=== PATIENT | male | born 1940 | race African-American/Black ===

== ENCOUNTER 2021-10-03 10:16 | Emergency (ER) | payer MEDICARE, OTHER | END 2021-10-03 12:25 | disposition home or self-care (01) | LOC: ERS 10:16 | DX: S13.4XXA Sprain of ligaments of cervical spine, initial encounter (principal); S16.1XXA Strain of muscle, fascia and tendon at neck level, initial encounter; S00.03XA Contusion of scalp, initial encounter; I10 Essential (primary) hypertension; E11.9 Type 2 diabetes mellitus without complications; W18.30XA Fall on same level, unspecified, initial encounter | CPT/HCPCS: 70450; 72125 ==

== ENCOUNTER 2021-11-27 14:38 | Outpatient (CLI) | payer MEDICARE | END 2021-11-27 14:39 | disposition home or self-care (01) | LOC: BICULT 14:38 | PROVIDERS: ATTEND Internal Medicine Nephrology | DX: N18.30 Chronic kidney disease, stage 3 unspecified (principal); N28.1 Cyst of kidney, acquired | CPT/HCPCS: 76770 ==

== ENCOUNTER 2023-01-31 17:49 | Observation (INO) | payer MEDICARE ==
[2023-01-31 18:24] LABS: #Eosinphils 0.2 thou/uL (0.0-0.7); #Monocytes 0.5 thou/uL (0.11-0.59); #Neutrophils 2.7 thou/uL (1.40-6.50); %Basophils 0.8 % (0.0-1.0); %Eosinophils 4.1 % (0.0-10.0); %Lymphocytes 32.6 % (21.0-51.0); %Monocytes 9.9 % (0.0-10.0); %Neutrophils 52.4 % (42.0-75.0); Hemoglobin 11.6 g/dL (14.0-18.0); Mean Corpuscular HGB CONC 31.9 g/dL (32.0-36.0); Mean Corpuscular Hemoglobin 26.9 pg (27.0-31.0); Mean Corpuscular Volume 84.5 fl (78.0-98.0); Mean Platelet Volume 9.7 fL (7.4-10.4); Platelet Count 242 10x3/uL (130-400); RBC Distribution Width 15.2 % (11.5-14.5); Red Blood Cell (RBC) Count 4.31 mill/uL (4.70-6.10); White Blood Cell (WBC) Count 5.1 10x3/uL (4.8-10.8)
[2023-01-31 18:46] LABS: Anion Gap 15 mmol/L (10-20); BUN (Urea Nitrogen) 43 mg/dL (8.4-25.7); CK (CPK) 91 U/L (30-200); Calc. Creatinine Clearance 0 mL/min (70-130); Calcium 9.4 mg/dL (7.8-10.44); Carbon Dioxide 22 mmol/L (23-31); Chloride 107 mmol/L (98-107); Estimated GFR 19; Glucose 107 mg/dL (83-110); Potassium 4.8 mmol/L (3.5-5.1); Sodium 139 mmol/L (136-145)
[2023-01-31] MEDS ORDERED: Ondansetron ODT 4 MG TAB PO PRN (19:56)
[2023-01-31] MEDS ORDERED: Ondansetron PF 4 MG/2 ML Vial IVP PRN (19:56)
[2023-01-31] MEDS ORDERED: Acetaminophen 650 MG Suppository PR PRN (19:56)
[2023-01-31] MEDS ORDERED: Acetaminophen 325 MG TAB PO PRN (19:56)
[2023-01-31 21:15] VITALS: BMI 33.7
[2023-01-31] MEDS: Sodium Chloride 0.9% 1,000 ML IV SCH (21:33)
[2023-02-01 02:54] LABS: Bacteria/HPF None Seen HPF (None Seen); RBC/HPF 0-3 HPF (0-3); Squamous Epithelial None Seen HPF (0-3); WBC/HPF 0-3 HPF (0-3)
[2023-02-01 05:50] LABS: #Eosinphils 0.2 thou/uL (0.0-0.7); #Monocytes 0.6 thou/uL (0.11-0.59); #Neutrophils 2.1 thou/uL (1.40-6.50); %Basophils 0.7 % (0.0-1.0); %Eosinophils 4.4 % (0.0-10.0); %Lymphocytes 33.7 % (21.0-51.0); %Monocytes 12.7 % (0.0-10.0); %Neutrophils 48.3 % (42.0-75.0); Hemoglobin 11.4 g/dL (14.0-18.0); Mean Corpuscular HGB CONC 31.7 g/dL (32.0-36.0); Mean Corpuscular Hemoglobin 26.5 pg (27.0-31.0); Mean Corpuscular Volume 83.5 fl (78.0-98.0); Mean Platelet Volume 9.7 fL (7.4-10.4); Platelet Count 222 10x3/uL (130-400); RBC Distribution Width 14.9 % (11.5-14.5); Red Blood Cell (RBC) Count 4.31 mill/uL (4.70-6.10); White Blood Cell (WBC) Count 4.3 10x3/uL (4.8-10.8)
[2023-02-01 06:10] LABS: Anion Gap 13 mmol/L (10-20); BUN (Urea Nitrogen) 35 mg/dL (8.4-25.7); Calc. Creatinine Clearance 28 mL/min (70-130); Calcium 9.3 mg/dL (7.8-10.44); Carbon Dioxide 21 mmol/L (23-31); Chloride 112 mmol/L (98-107); Estimated GFR 23; Glucose 76 mg/dL (83-110); Potassium 4.8 mmol/L (3.5-5.1); Sodium 141 mmol/L (136-145)
[2023-02-01] MEDS: Sodium Chloride 0.9% 1,000 ML IV SCH (06:31)
[2023-02-01] MEDS ORDERED: Sodium Chloride 0.9% 1,000 ML IV SCH ×2 (11:01→12:45)
[2023-02-01] MEDS ORDERED: Lactated Ringer's 1,000 ML IV SCH (11:15)
[2023-02-01 11:54] VITALS: BP 155/82; TEMP 98.1
== END 2023-02-01 15:22 | disposition home or self-care (01) ==
LOC: ERS 17:49 → SURG B 19:39
PROVIDERS: ADMIT Student in an Organized Health Care Education/Training Program; ATTEND Internal Medicine
DX: I12.9 Hypertensive chronic kidney disease with stage 1 through stage 4 chronic kidney disease, or unspecified chronic kidney disease (principal); N18.4 Chronic kidney disease, stage 4 (severe); D63.1 Anemia in chronic kidney disease; E11.22 Type 2 diabetes mellitus with diabetic chronic kidney disease; N28.1 Cyst of kidney, acquired; N17.9 Acute kidney failure, unspecified; E86.0 Dehydration; Z88.0 Allergy status to penicillin; Z79.84 Long term (current) use of oral hypoglycemic drugs; Z79.899 Other long term (current) drug therapy
CPT/HCPCS: 80048 ×2; 81015; 82550; 82962 ×2; 85025 ×2; 96360; 96361; 99284; G0378 ×3; 36415; 36416; J7050

== ENCOUNTER 2024-06-03 01:16 | Observation (INO) | payer MEDICARE ==
[2024-06-03 02:12] LABS: #Basophils 0.03 10x3/uL (0.0-0.2); %Basophils 0.6 % (0.0-1.0); %Eosinophils 2.4 % (0.0-10.0); %Lymphocytes 22.6 % (21.0-51.0); %Monocytes 10.3 % (0.0-10.0); %Neutrophils 63.9 % (42.0-75.0); Hematocrit 34.1 % (42.0-52.0); Hemoglobin 10.4 g/dL (14.0-18.0); Mean Corpuscular HGB CONC 30.5 g/dL (32.0-36.0); Mean Corpuscular Hemoglobin 25.3 pg (27.0-31.0); Mean Platelet Volume 11.6 fL (7.4-10.4); Platelet Count 193 10x3/uL (130-400); RBC Distribution Width 16.5 % (11.5-14.5); Red Blood Cell (RBC) Count 4.11 mill/uL (4.70-6.10)
[2024-06-03 02:30] LABS: ALT (SGPT) 8 U/L (8-55); AST (SGOT) 13 U/L (5-34); Albumin 3.2 g/dL (3.4-4.8); Alkaline Phosphatase 72 U/L (40-110); Anion Gap 12 mmol/L (10-20); BUN (Urea Nitrogen) 25 mg/dL (8.4-25.7); Bilirubin, Total 0.6 mg/dL (0.2-1.2); Calc. Creatinine Clearance 0 mL/min (70-130); Calcium 8.7 mg/dL (7.8-10.44); Carbon Dioxide 17 mmol/L (23-31); Chloride 115 mmol/L (98-107); Estimated GFR 24; Globulin 3.4 g/dL (2.4-3.5); Glucose 106 mg/dL (83-110); Lipase 47 U/L (8-78); Magnesium 1.7 mg/dL (1.6-2.6); Potassium 4.4 mmol/L (3.5-5.1); Protein, Total 6.6 g/dL (5.8-8.1); Sodium 140 mmol/L (136-145)
[2024-06-03 02:33] LABS: Troponin I 0.024 ng/mL (< 0.028)
[2024-06-03] MEDS ORDERED: Nitroglycerin 2% Ointment 1 INCH/1 GM Packet ONE (02:54)
[2024-06-03] MEDS ORDERED: Aspirin Chewable 81 MG TAB ONE (02:54)
[2024-06-03] MEDS ORDERED: Furosemide 40 MG (4 mL) VIAL ONE (02:54)
[2024-06-03 05:37] VITALS: BMI 24.4
[2024-06-03 08:38] LABS: Troponin I 0.027 ng/mL (< 0.028)
[2024-06-03] MEDS ORDERED: Insulin Lispro 100 UNIT/ML 10 ML VIAL SC PRN ×2 (08:54)
[2024-06-03] MEDS ORDERED: Ondansetron ODT 4 MG TAB PO PRN (08:54)
[2024-06-03] MEDS ORDERED: Ondansetron PF 4 MG/2 ML Vial IVP PRN (08:54)
[2024-06-03] MEDS ORDERED: Acetaminophen 325 MG TAB PO PRN (08:54)
[2024-06-03] MEDS ORDERED: Acetaminophen 650 MG Suppository PR PRN (08:54)
[2024-06-03] MEDS ORDERED: Dextrose 50% Abboject 50 ML SYRINGE SLOW IVP PRN (08:54)
[2024-06-03] MEDS ORDERED: Glucagon 1 MG/ML KIT IM PRN (08:54)
[2024-06-03] MEDS ORDERED: Senokot S 8.6-50 MG TAB PO PRN (08:54)
[2024-06-03] MEDS ORDERED: Dextrose 5% in Water 1,000 ML IV PRN (08:54)
[2024-06-03] MEDS: Magnesium 2 GM/50 ML(in water) 2 GM in Premix 1 BAG IVPB SCH (10:14)
[2024-06-03] MEDS: Nitroglycerin 2% Ointment 1 INCH/1 GM Packet TOP SCH (10:14)
[2024-06-03] MEDS: Heparin 5,000 UNITS/ML VIAL SC SCH (10:16)
[2024-06-03] MEDS: Carvedilol 25 MG TAB PO SCH (10:17)
[2024-06-03] MEDS: Atorvastatin Calcium 20 MG TAB PO SCH (10:17)
[2024-06-03] MEDS: Famotidine 20 MG TAB PO SCH (10:57)
[2024-06-03 12:04] VITALS: BP 171/95; TEMP 98.9
[2024-06-03] MEDS ORDERED: Nitroglycerin 0.4 MG TAB (25 Tab Bottle) SL PRN (13:44)
[2024-06-03] MEDS ORDERED: Furosemide 20 MG (2 mL) VIAL SLOW IVP SCH ×3 (14:00→21:00)
[2024-06-03] MEDS ORDERED: hydrALAZINE 25 MG TAB PO SCH (15:00)
[2024-06-03] MEDS ORDERED: Famotidine 20 MG TAB PO SCH (21:00)
[2024-06-04] MEDS ORDERED: Aspirin 81 mg Enteric Coated Tablet PO SCH (09:00)
== END 2024-06-03 14:25 | disposition home or self-care (01) ==
LOC: ERS 01:16 → OBS 05:35
PROVIDERS: ADMIT Student in an Organized Health Care Education/Training Program; ATTEND Student in an Organized Health Care Education/Training Program
PROC: B24BZZZ Ultrasonography of Heart with Aorta (ICD-10-PCS; principal; 2024-06-03)
DX: I13.0 Hypertensive heart and chronic kidney disease with heart failure and stage 1 through stage 4 chronic kidney disease, or unspecified chronic kidney disease (principal); I50.9 Heart failure, unspecified; N18.4 Chronic kidney disease, stage 4 (severe); E11.22 Type 2 diabetes mellitus with diabetic chronic kidney disease; Z85.46 Personal history of malignant neoplasm of prostate; Z87.891 Personal history of nicotine dependence; Z98.890 Other specified postprocedural states; Z88.0 Allergy status to penicillin; Z79.899 Other long term (current) drug therapy
CPT/HCPCS: 71045; 80053; 82962; 83690; 83735; 83880; 84484 ×2; 85025; 93005; 93306; 96372; 96374; 96375; 99285; G0378; J1644; J1940; J3475; 36415; 36416

== ENCOUNTER 2025-05-01 07:27 | Emergency (ER) | payer OTHER ==
[2025-05-01] MEDS ORDERED: Ketorolac Tromethamine 30 MG (1 mL) VIAL ONE (08:08)
[2025-05-01] MEDS ORDERED: cloNIDine 0.1 MG TAB ONE (08:38)
== END 2025-05-01 09:45 | disposition home or self-care (01) ==
LOC: ERS 07:27
DX: M25.531 Pain in right wrist (principal); M10.9 Gout, unspecified; I10 Essential (primary) hypertension; E11.9 Type 2 diabetes mellitus without complications
CPT/HCPCS: 73110; 73130; J1885; 96372; 99283